=== PATIENT | female | born 1970 | race Caucasian/White ===

== ENCOUNTER 2016-12-08 07:17 | Day surgery (SDC) | payer OTHER, MEDICARE ==
[~2016-12-08] VITALS: Ht 160 cm; Wt 86.0 kg
[~2016-12-08 07:17] MED LIST: ARIP20TA8 PO; DIAZ5TAB PO; DXM4T PO; GABA-504 PO; HYDR-3090 PO; OXYC1TAB24 PO; PROZ20 PO; TRAZ-115 PO; [UNRECOGNIZED DRUG - CODE] PO
[2016-12-08] MEDS ORDERED: Bupivacaine-MPF 0.25% 30 mL Inj ONE (07:18)
[2016-12-08] MEDS ORDERED: MethylprednisoLONE Depot 80 mg/mL Inj ONE (07:18)
[2016-12-08 07:55] VITALS: BP 141/73; PULSE 86; RESP 16; O2SAT 98
--- NOTE | 2016-12-08 16:27 | PCM.PROC ---
Procedure Note Date of Service: Dec 08, 2016 Pre Procedure Diagnosis: PROCEDURE: LEFT Ultrasound guided sacroiliac joint injection. PRE-PROCEDURE DIAGNOSIS: Sacroiliitis POST-PROCEDURE DIAGNOSIS: same INDICATION: Posterior hip pain, consistent with sacroiliitis. PERFORMED BY: Robert Brambila MD DESCRIPTION OF PROCEDURE: Patient was met in the holding area. Consent was signed, site was confirmed and all questions were answered. Patient was taken to the procedure suite and placed prone on the procedure table. Area was prepped in sterile fashion. Local anesthesia with 1% lidocaine was injected into the skin and subcutaneous tissues. A 3-1/2 inch 22-gauge Quincke spinal needle was advanced under direct ultrasound visualization into the sacroiliac joint. After negative aspiration for blood, 2 cc of 0.25% bupivacaine with 40 mg Depo-Medrol was injected without incident. ANESTHESIA: Local. EBL: None. No Blood Products Used COMPLICATIONS: None SPECIMENS: None POST-PROCEDURE DISPOSITION: Patient was returned to the holding area in stable condition. They were discharged home when all discharge criteria were met. Evaluation/Physical Exam before discharge revealed: DISCHARGE MEDICATIONS: FOLLOW UP: Return to clinic in 4-6 weeks Robert De La Torre MD, MD Dec 08, 2016 16:27
[2017-03-14] MEDS ORDERED: FLUT9.9S NS (16:48)
== END 2016-12-08 23:59 | disposition home or self-care (01) ==
LOC: END 07:17
PROVIDERS: ATTEND Anesthesiology Pain Medicine
DX: M46.1 Sacroiliitis, not elsewhere classified (principal); M46.96 Unspecified inflammatory spondylopathy, lumbar region; M25.552 Pain in left hip; M25.551 Pain in right hip; F25.9 Schizoaffective disorder, unspecified; E66.9 Obesity, unspecified; Z68.34 Body mass index [BMI] 34.0-34.9, adult
CPT/HCPCS: G0260; J1040

== ENCOUNTER 2017-03-16 00:31 | Day surgery (SDC) | payer OTHER, MEDICARE ==
[~2017-03-16] VITALS: Ht 157.5 cm; Wt 88.0 kg
[~2017-03-16 00:31] MED LIST changes: -DIAZ5TAB PO; -DXM4T PO; +FLUT9.9S NS; -HYDR-3090 PO; -OXYC1TAB24 PO
[2017-03-16] MEDS ORDERED: Iohexol 240 mg/mL 10 mL Inj ONE (00:32)
[2017-03-16] MEDS ORDERED: Bupivacaine-MPF 0.25% 30 mL Inj ONE (00:32)
[2017-03-16 07:44] VITALS: BP 111/66; PULSE 82; RESP 16; O2SAT 94
[2017-03-16 08:03] VITALS: BP 119/63; PULSE 84; RESP 14; O2SAT 93
[2017-03-16 08:05] VITALS: BP 112/64; PULSE 78; RESP 16; O2SAT 94
[2017-03-16 08:10] VITALS: BP 121/65; PULSE 78; RESP 14; O2SAT 100
[2017-03-16 08:18] VITALS: BP 116/65; PULSE 79; RESP 20; O2SAT 94
--- NOTE | 2017-03-16 14:53 | PCM.PROC ---
Procedure Note Date of Service: March 16, 2017 Pre Procedure Diagnosis: PROCEDURE: Diagnostic medial branch block of the Lumbar facet joints LEFT L4-L5 , L5-S1. First injection. The 0.25% bupivacaine PRE-PROCEDURE DIAGNOSIS: Lumbar spondylosis POST-PROCEDURE DIAGNOSIS: same INDICATION: 46-year-old patient with greater than 3 months of moderate to severe axial LBP, refractory to conservative management, including NSAIDS and PT. PERFORMED BY: Robert Brambila MD DESCRIPTION OF PROCEDURE: Patient was met in the holding area. Consent was signed, site was confirmed and all questions were answered. Patient was taken to the procedure suite and placed prone on the procedure table. At each level, the vertebral endplates were used to optimize fluoroscopic position. Local anesthesia was attained with 1% lidocaine. The image intensifier was then rotated ipsilaterally to optimize the "Kelvin dog" position. A 25-gauge Quincke spinal needle was advanced towards the junction of the SAP and transverse process at each level. Proper positioning was confirmed in both the AP and lateral views. 0.5 cc of radiopaque contrast was injected to confirm proper position followed by an injection underlying fluoroscopy to minimize the chance of inadvertent vascular uptake. For the L5-[id number] joint the final position was the junction of the sacral ala and the S1 superior articulating process After proper positioning was confirmed, 0.5 cc of local anesthetic was injected at each level. ANESTHESIA: Local. EBL: None. No Blood Products Used COMPLICATIONS: None SPECIMENS: None POST-PROCEDURE DISPOSITION: Patient tolerated the procedure well and was returned to the holding area in stable condition. They were discharged home when all discharge criteria were met. DISCHARGE MEDICATIONS: None FOLLOW UP: Pain diary, Return to discuss Robert Brambila MD * Pain Management * Anesthesiology .ED: Y: Patient given care and follow up instructions Robert Brambila MD March 16, 2017 14:53
== END 2017-03-16 23:59 | disposition home or self-care (01) ==
LOC: END 00:31
PROVIDERS: ATTEND Anesthesiology Pain Medicine
DX: M47.896 Other spondylosis, lumbar region (principal); M47.816 Spondylosis without myelopathy or radiculopathy, lumbar region

== ENCOUNTER 2017-04-09 10:21 | Inpatient (IN) | payer OTHER, MEDICARE ==
[~2017-04-09] VITALS: Ht 160 cm; Wt 86.2 kg
[2017-04-09 10:31] VITALS: BP 117/72; PULSE 97; RESP 15; O2SAT 95
[2017-04-09] MEDS ORDERED: NORE-49 PO (10:39)
--- NOTE | 2017-04-09 11:17 | ED.REPORT ---
HPI-Psychiatric Illness Date of Service Apr 09, 2017 ED Provider: Giselle Dang MD Patient is a 47 year old female with a hx of schizoaffective disorder and previous suicide attempt who presents to the ED complaining of worsening suicidal ideation with a plan onset a few months ago. She states she was planning to kill herself by taking trazodone today but made a detour to the hospital. Additionally, she has follow through after her suicide plan. She will not reveal where the pills are hidden but states that they are not with her. She has tried to kill herself via overdose previously. Associated symptoms include mood swings. She denies homicidal ideation, hallucinations, or any other symptoms. She reports that her medications have not been working for the past few months and her PCP is not willing to change them. She takes Abilify, gabapentin, trazodone, and Prozac. She took her medications this morning. Her mental health CLOAK ROOM ATTENDANT is Tracie Fuchs at [facility] in [place]. Nursing Notes Stated Complaint: SUICIDAL Chief Complaint: Psychiatric Complaint Nursing Notes Reviewed: Yes Allergies: Coded Allergies: nortriptyline (Verified Allergy, Intermediate, Rash, 11/21/15) Scheduled Aripiprazole (Abilify) 20 Mg Tablet 20 MG PO HS Fluoxetine (Prozac) 20 Mg Capsule 60 MG PO DAILY Fluticasone Propionate (Flonase Allergy Relief) 50 Mcg/Actuation [place].susp 9.9 ML NS DAILY Gabapentin (Gabapentin) 400 Mg Capsule 400 MG PO TID Gabapentin (Gabapentin) 400 Mg Capsule 1,600 MG PO HS Norethindrone-Ethinyl Estrad (Cyclafem) 1 Each Tablet 1 EACH PO DAILY Trazodone (Trazodone) 50 Mg Tablet 250 MG PO HS General Time Seen by MD: 11:16 Chief Complaint Suicidal ideation Hx Obtained From: Patient Arrived By: Walk-in Similar Sx Previous: Yes Risk-Psychiatric Illness Suicide Risk Stratification Suicide Risk Factors - Adult: : Previous attemptNo: Alcohol use, Substance abuse RF Statements: Risk factors reviewed Past Medical History Past Medical History Hip pain Depression C-spine pain s/p work injury Schizoaffective disorder Past Surgical History Tubal ligation Neck surgery C-spine fusion 2010 s/p work injury Smoking History Former Smoker Social History Alcohol Use: Denies alcohol use (Rare ) Drug Use: Denies drug use Other Social History: , Local resident Ambulatory Status Independent Review of Systems Psychiatric: Reports: Suicidal ideation, Denies: Hallucinations, auditory, Hallucinations, visual, Homicidal ideation Complete sys rev & neg: except as marked. Physical Exam Initial Vital Signs Vital Signs (First) Date Time Temp Pulse Resp B/P Pulse Ox O2 Delivery O2 Flow Rate FiO2 04/09/17 10:31 36.8 97 15 117/72 95 Room Air Initial VS: Reviewed, Vital signs normal Head / Eyes: Atraumatic, Normocephalic Neck: Full range of motion Abdomen / GI: Soft, Non-tender Skin: Warm, Dry General/Constitutional: Awake, Alert, Well developed Neurologic: Oriented X3, Speech NL Psychiatric: Thought content NL Abnormal Mood/Affect: Positive: Flat affect Abnormal Thinking / Perception: Positive: Suicidal, with plan Has follow through after plan Intermittent eye contact Tearful but appropriate and focused Respiratory / Chest: Breath sounds NL, Breath sounds = bilat, No respiratory distress Cardiovascular: Heart sounds NL Heart Rate / Rhythm: Positive: Tachycardia Interpretation & Diagnostics Lab Results Interpretation Result Diagram: 04/09/17 1235 04/09/17 1235 Test 04/09/17 12:35 04/09/17 12:45 04/09/17 13:11 White Blood Count 10.1th/mm3 (3.8-10.1) Red Blood Count 4.94mil/mm3 (3.90-5.20) Hemoglobin 15.6g/dL (12.0-15.6) Hematocrit 47.5% (35.0-46.0) Mean Corpuscular Volume 96.2fL (81-100) Mean Corpuscular Hemoglobin 31.6pg (27.0-35.0) Mean Corpuscular Hemoglobin Concent 32.8% (32.0-37.0) Red Cell Distribution Width 12.4% (12.3-15.4) Platelet Count 351bil/L (150-400) Neutrophils (%) (Auto) 73.8% (40-74) Lymphocytes (%) (Auto) 20.4% (14-46) Monocytes (%) (Auto) 5.3% (4-12) Eosinophils (%) (Auto) 0.2% (0-5) Basophils (%) (Auto) 0.2% (0-3) Sodium Level 138mEq/L (134-144) Potassium Level 4.4mEq/L (3.5-5.2) Chloride Level 102mEq/L (97-108) Carbon Dioxide Level 20mmol/L (18-29) Blood Urea Nitrogen 9mg/dL (6-24) Creatinine 0.68mg/dL (0.57-1.00) Estimat Glomerular Filtration Rate 132mL/min (>59) Glucose Level 100mg/dL (60-99) Calcium Level 9.6mg/dL (8.5-10.1) Total Bilirubin 0.4mg/dL (0.0-1.2) Aspartate Amino Transf (AST/SGOT) 22U/L (0-50) Alanine Aminotransferase (ALT/SGPT) 20U/L (0-32) Alkaline Phosphatase 53U/L (25-150) Total Protein 7.6g/dL (6.4-8.4) Albumin 4.5g/dL (3.4-5.0) Thyroid Stimulating Hormone (TSH) 3.240uIU/mL (0.450-4.500) Hold Urine Received (Received) Hold Velazquez Top Tube Received (Received) Lab Results Interpretation: Urine tox negative Re-Eval/Medical Decision Re-Evaluation/Progress : Time of Eval: 11:30 )( Re-Eval Psychiatric: Clear for psych facility Re-Evaluation/Progress Note: Discussed plan for admission. Patient understands and agrees with plan. All questions addressed at this time. Consultation : Consulted With: relief worker Call Returned at: 12:16 Emergency Department Director: Will see patient, Agrees with plan Note: Discussed pt case with Lynne in social work. Will see patient. Counseled Regarding: Diagnosis, Need for admission Discharge & Departure Shift Change Sign-Out Patient Care Transferred: Yes Discussed Complaint(s): Yes Laboratory Evaluation: Back, reviewed by me Additonal Information: Transfer of care to Dr. Guadarrama at 1500. History of schizoaffective disorder with depression. Describes rapid cycling recently significantly worsening depression that has not been treated with current medication doses. She has a firm plan in place to take a bottle of her trazodone, she has this trazodone hidden and would not disclose where it was. She did say it was not with her at the hospital. Today she was planning to take this prior to taking the pills she did divert to the hospital to ask for help. She has arrangements made for her daughter her pets her home her finances etc. assuming that she would be . Tenderness firm plan and the follow-up plans that have already been arranged her risk for suicide is significant and inpatient treatment is recommended this time. She is medically cleared they are currently awaiting bed availability and placement. She remains voluntary and very cooperative Impression: Primary Impression: Suicidal ideation Additional Impressions: Medical clearance for psychiatric admission Schizoaffective disorder Depression Discharge Condition All VS Reviewed: Yes Condition: Stable Referrals: Kelly Hernandez (PCP) Care Transferred to: Transfer of care to Dr. Guadarrama Care Transferred at: 15:00 Scribe Attestation Portions of this note were transcribed by Ammon Lopez. I, Dr. Dang personally performed the history, physical exam and medical decision-making; I reviewed and confirmed the accuracy of the information in the transcribed note. Signed by: Ammon Lopez 04/09/17, 1433 copies to: Kelly Hernandez Shawna L MD Apr 09, 2017 11:17 AMMON LOPEZ Apr 09, 2017 12:16
[2017-04-09 12:48] LABS: BASOPHILS % (AUTO) 0.2 % (0-3); EOSINOPHILS % (AUTO) 0.2 % (0-5); MONOCYTES % (AUTO) 5.3 % (4-12); Mean Corpuscular Hemoglobin 31.6 pg (27.0-35.0); Mean Corpuscular Volume 96.2 fL (81-100); NEUTROPHILS % (AUTO) 73.8 % (40-74); Platelet Count 351 bil/L (150-400)
[2017-04-09 20:14] VITALS: BP 115/70; PULSE 82; RESP 14; O2SAT 100
[2017-04-09] MEDS ORDERED: Magnesium Hydroxide 10 mL Oral Concentration PO PRN (21:30)
[2017-04-09] MEDS ORDERED: Benzocaine-Menthol Lozenge 2/Pkg PO PRN (21:30)
[2017-04-09] MEDS ORDERED: Alum-Mag Hydrox-Simeth 30 mL Suspension PO PRN (21:30)
[2017-04-09] MEDS ORDERED: TRAZODONE PO SCH ×2 (21:32)
[2017-04-09] MEDS ORDERED: ARIPiprazole 10 mg Tablet PO SCH (21:32)
--- NOTE | 2017-04-09 23:23 | NUR ---
New Admit Voluntary admit SIOBHAN @ 1935. Ambulatory with steady gait. She presents as pleasant, cooperative and seeking help. Her main complaint is depression for the past several weeks and the night prior to admission she had suicidal thoughts with a plan to overdose on pills. She reports having a 24 year history of dealing with mental illness. She states she is diagnosed with "schizoaffective disorder and rapid cycling". She has had two prior suicide attempts with hospitalization in 1996 and 2010 both times she overdosed on medication. Pt reports having positive relationship with both and 16 year old daughter and feels supported by them. Normally this is a good time of year for her and enjoys gardening and taking care of her pets. She states "I have been having uncontrollable crying. I can't handle my mood swings. I don't know how to cope anymore. I think part of the problem is that I need a medication review. As I am getting older and my hormones are changing my medications might need adjusting. I did wonderful when I saw Dr. Broussard but then he retired. I have been seeing an TOBACCO HANGER who took over but she has not been willing to change my medication". Upon admission she rates depression 10/10, Anxiety 9/10, and SI prior to admission was 10/10 but now that she is in the hospital "I feel safe" and rates SI 0/10. Upon admit she was experiencing neck pain that was radiating down her shoulder rated 4/10 and received Motrin 600mg po prn. For the past 2 years she has had low back pain and is seeing a pain specialist Dr Robert Doherty. Pt signed all admission paperwork and oriented to the unit. She took her scheduled HS medication and appeared asleep by 2300. Addendum: 04/10/17 at 0526 by ZOHRA GABRIEL RN Difficulty falling asleep. She received Ambien 5mg po prn @ 0036 and later Ativan 1mg po prn @ 0142. Pt finally noted to be asleep @ 0215 and remains asleep at this time. Total sleep 4+ hours.
[2017-04-10] MEDS ORDERED: LORazepam 1 mg Tablet PO ONE (00:55)
[2017-04-10] MEDS ORDERED: LORazepam 1 mg Tablet PO PRN (01:30)
[2017-04-10] MEDS: CYCLAFEM PO SCH (08:04)
[2017-04-10 08:40] VITALS: BP 106/71; PULSE 91; RESP 15
--- NOTE | 2017-04-10 09:58 | NUR ---
Vehicle concerns: Pt worried about vehicle being towed from ED parking lot. Telephone call to Security staff, assured pt that vehicle would not be towed. Pt reports that she left a bag of clothing in car, pt asking if security can get into car and get her bag. Informed pt that security staff is not allowed to access private vehicles, informed pt that if she has family visiting then family can get into her car.
--- NOTE | 2017-04-10 15:48 | NUR ---
Obs Dayshift Pt has good participation in programs, groups, etc. Pt is engaging w/ peers and staff, appropriate, polite. Pt appears depressed at times, but working hard on pushing herself. Pt has reasonable requests. Pt states that the meds are making her a little tired but she is trying to push herself to be up more and out in the milieu. Good ADL's, Good meals
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
[2017-04-10] MEDS: risperiDONE 2 mg Tablet PO SCH (20:39)
--- NOTE | 2017-04-11 02:56 | NUR ---
Observations 1900 - 0700 Pt was observed to be flat, minimally social, isolative and in bed resting most of the evening. Pt was pleasant, polite and cooperative when approached. Pt maintained behavior throughout the shift. Pt speech and eye contact was ok. Pt attended wrap up group and stated that she met her goal for the day. Pt positive for the day was the friendliness of the whole unit and art group. Pt rated her mood 8/10, with 10 being the best. Pt ate snack. Pt first appeared asleep at 2200. Pt was observed every 15 minutes through the night as ordered.
--- NOTE | 2017-04-11 05:19 | NUR ---
Nursing Noc Pt isolative to room or out to DR not really interacting. Reported depression x weeks, Multiple hx of suicidal ideation and depression. Pt noted to be asleep at 2200 and remained asleep throughout the night. Continuing to monitor mood, behavior and emotional state. CP
[2017-04-11] MEDS: DULoxetine 20 mg DR Capsule PO SCH (08:05)
[2017-04-11] MEDS: CYCLAFEM PO SCH (08:06)
--- NOTE | 2017-04-11 13:14 | NUR ---
Nursing Note [id number] Behavior, Mood, Medications S/O: Pt has good appetite. Out of room to activities & groups. Pt rates mood at a "10" on a scale of 1-10/10 the worst. She denies suicidal ideation. She reports she slept last night with only 1 brief awakening. Pt c/o a headache this morning at a "8" on a scale of 1-10/10 the worst. Ibuprofen 600 mg given at 0845. Pt reports it helped "50%." She has requested a Bible & a visit with the rim buster. She states she would like to discharge tomorrow. "I need to get home to take care of things. My family is having to do everything themselves." A: Pt feels better with adequate sleep. Pt may need more monitoring of medications management prior to discharge. P: Provide supportive environment. Monitor medications & effects.
[2017-04-11 13:27] VITALS: BP 103/67; PULSE 96; RESP 16
--- NOTE | 2017-04-11 14:02 | NUR ---
spiritual care: pt request conversational visit in pt's room. pt engaged easily, used normal speaking tone/expression/eye contact. She reflected on struggles including with self esteem, worthiness and will to live. Pt reflected on her lutheran farzana and ways she feels vulnerable. pt able to assess strengths/source of hopefulness including current care environment, requested prayer and larger bible (provided copy of larger nt/psalms.)
--- NOTE | 2017-04-11 14:27 | PCM.PNPSY ---
Subjective Date of Service Apr 11, 2017 Subjective I spent 30 minutes both reviewing treatment plan with our clinical team, interviewing the patient and providing supportive/educational psychotherapy. I spent more than 50% of the time counseling the patient. I reviewed the treatment plan with the patient and discussed options available including the potential risks, benefits and side effects. Katerine reports a marked improvement in thought organization and mood stability. Staff reports that she has been active and participating well in one-to-one unit and group activities. She slept 6 hours and denies depression manic or psychotic symptoms review. She denies medication side effects. She was able to identify her medications and what they were used to treat. Current Medications Current Medications Aripiprazole 20 mg HS PO Last administered on 04/09/17 21:57; Admin Dose 20 MG; Start 04/09/17 at 21:32; Stop 04/10/17 at 13:36; Status DC Clonazepam 1 mg HS PO Last administered on 04/10/17 20:39; Admin Dose 1 MG; Start 04/10/17 at 21:00 Duloxetine HCl 40 mg DAILY PO Last administered on 04/11/17 08:05; Admin Dose 40 MG; Start 04/11/17 at 08:30 Fluoxetine HCl 60 mg DAILY PO Last administered on 04/11/17 08:05; Admin Dose 60 MG; Start 04/10/17 at 08:30 Gabapentin 400 mg TID PO Last administered on 04/11/17 08:05; Admin Dose 400 MG ; Start 04/10/17 at 08:30 Gabapentin 1,600 mg HS PO Last administered on 04/10/17 20:38; Admin Dose 1,600 MG; Start 04/09/17 at 21:28 Ibuprofen 600 mg Q6H PRN PO Last administered on 04/11/17 08:51; Admin Dose 600 MG; Start 04/09/17 at 21:30 Lorazepam 1 mg OT PRN PO Last administered on 04/10/17 01:42; Admin Dose 1 MG; Start 04/10/17 at 01:30; Stop 04/10/17 at 02:00; Status DC Patient Own Medication 1 ea DAILY PO Last administered on 04/11/17 08:06; Admin Dose 1 EA; Start 04/10/17 at 08:30 Risperidone 2 mg DAILY PO Last administered on 04/10/17 20:39; Admin Dose 2 MG; Start 04/10/17 at 20:30 Trazodone HCl/ Trazodone HCl 250 mg HS PO Last administered on 04/09/17 21:57; Admin Dose 250 MG; Start 04/09/17 at 21:32; Stop 04/10/17 at 13:36; Status DC Zolpidem Tartrate START WITH 5 MG AND MAY REP... HS PRN PO Last administered on 04/10/17 00:36; Admin Dose 5 MG; Start 04/09/17 at 21:30 Mental Status Exam Vital Signs Vital Signs Date Time Temp Pulse Resp B/P Pulse Ox O2 Delivery O2 Flow Rate FiO2 04/11/17 13:27 37.2 96 16 103/67 Appearance: Neat/well groomed Attitude: Pleasant, Cooperative Behavior: No unusual behavior Affect: Well Modulated/Appropriate Mood: Euthymic Thought Process/Associations: Logical/Sequential, Goal Directed Speech Production: Normal Speech Rate: Normal Speech Articulation: Normal Thought Content: Appropriate Danger to Self/Suicidal Ideati: None Danger to Others: None Consciousness: Alert Orientation: Person, Place, Date, Situation Memory: Grossly Intact Estimate Intellectual Function: Above Average Basis for IQ estimate: Awareness current events, Word use/vocabulary, Educational history Attention/Concentration & Cogn: Impaired Cognitive Testing Method: Abstract Reasoning during interview, Proverb interpretation, Serial computations Insight: Good Judgement: Limited Result Diagram: 04/09/17 1235 04/09/17 1235 Mental Health Plan Katerine is a 47-year-old, white female who has been struggling with mental illness for the past 25 years. Despite being on increasing doses of Abilify, Prozac, Neurontin and trazodone, she has continued to struggle with suicidal depression symptoms and suicidal ideation. We talked at length Sunday about the relative risks, benefits and side effects of changing medications. She appeared to understand the relative risk versus the relative benefits, and she agreed to transition from Abilify, Prozac and trazodone to a combination of Cymbalta, Risperdal and Klonopin to target sleep, mood and maintain a resolution of psychotic symptoms. With the structure of our unit in the above medication changes she was able to sleep well. She is working on identifying stressors that led to suicidal ideation. She states that although she has a bit of a headache she feels better than she has in a long while After recent medication changes. I believe the change in sleep is the main cause for her flight into health. [place] ISchizoaffective disorder, currently depressed, with suicidal ideation. [place] IIDeferred. [place] IIINone. [place] IVMild. [place] VCurrent global assessment of functioning equal to 35. Medications Treatments Patient is being provided with a high degree of safety through our unit structure and active adult engagement provided by our mental health professionals, mental health technicians, psychiatric nurses and myself. We are focusing on developing improved coping skills and identifying stressors that may have led to current episode. We will attempt to: * Integrate into therapeutic groups, milieu and individual therapy. * Maintain in a closely monitored and structured unit * Provide low-stimulation environment * Obtain collateral data to assist in treatment planning * Assess degree of lability of affect and impulse control * Complete safety plan * Decrease frequency of relapse and need for re-hospitalization * Denies thoughts of harm to self and/or others * Establish a consistent sleep pattern * Medication effective in stabilization of mood and/or thought process * Reduce the risk of imminent harm to self and/or others by providing a safe environment * Tolerates medication without side effects Patient will be on the following psychiatric medications: Klonopin 1 mg at bedtime Cymbalta 40 mg every morning Risperdal 2 mg at bedtime Depakote 1600 at bedtime Patient's legal status Patient is voluntary she is not on a involuntary treatment hold. Anticipated number of hospital days to achieve above goals: 5 Disposition: Home Rohan Townsedn MD Apr 11, 2017 14:27
--- NOTE | 2017-04-11 18:08 | NUR ---
[facility] Day Shift Pt maintained behavioral control throughout the shift. Pt affect appears mostly flat, brighter when engaged with staff and peers. Pt spends most of the shift resting in her room, but is participatory in unit activities when prompted by staff. Pt is pleasant with staff and peers when active on the unit. Pt attended all group activities and participated actively. Pt attended all meals and ate approx 100% of meals.
--- NOTE | 2017-04-11 19:30 | NUR ---
retail office manager/Counselor: S: "I have a headache today." O: Patient slept 8 hours last night per staff. Patient denies S/I and H/I. She also denies auditory and visual hallucinations. . A: Patient is cooperative, euthymic, limited judgment. P: Follow care plan, coordinate with out-patient providers.
[2017-04-11] MEDS: risperiDONE 2 mg Tablet PO SCH (20:40)
[2017-04-12] MEDS: LORazepam 1 mg Tablet PO PRN ×2 (02:13→18:12)
--- NOTE | 2017-04-12 04:19 | NUR ---
nursing, nights, 11-7 s- the ambien makes me restless. i took ativan before. thank you. o- has appeared to sleep after 2200. up 0110 and tried to get back to sleep. received 1 mg of ativan at 0215. appears asleep after 0245. assessed q 15 minutes. a- interrupted sleep, medication helpful, no apparent distress. p- monitor behavior/emotional state, quality, times and amount of sleep, use and effect of medication. vickie
[2017-04-12] MEDS: CYCLAFEM PO SCH (08:11)
[2017-04-12] MEDS: DULoxetine 20 mg DR Capsule PO SCH (08:11)
[2017-04-12] MEDS: risperiDONE 2 mg Tablet PO SCH (10:37)
--- NOTE | 2017-04-12 11:04 | NUR ---
Nursing Note [id number] Mood, Behavior S/O: Pt has good appetite. She rates mood at a "7" on a scale of 1-10/10 the best. "I don't have that deep depression." She states she has a "little anxiety" r/t discharge. She has multiple questions about discharge tomorrow. Questions answered as possible. She states she is concerned she is having problems sleeping. Pt says she will be going home tomorrow unless the doctor feels she needs more time here. A: Pt is responding well to medications. P: Provide supportive environment. Monitor medications & effects.
[2017-04-12 12:53] VITALS: BP 112/74; PULSE 93; RESP 16
--- NOTE | 2017-04-12 13:06 | PCM.PNPSY ---
Subjective Date of Service Apr 12, 2017 Subjective I spent 30 minutes both reviewing treatment plan with our clinical team, interviewing the patient and providing supportive/educational psychotherapy. I spent more than 50% of the time counseling the patient. I reviewed the treatment plan with the patient and discussed options available including the potential risks, benefits and side effects. Katerine reports a marked improvement in thought organization and mood stability. Staff reports that she has been active and participating well in one-to-one unit and group activities. She struggled to sleep last night and in addition to Risperdal and Klonopin also required Ativan. She then Slept 8 hours and denies depression manic or psychotic symptoms review. She denies medication side effects. She was able to identify her medications and what they were used to treat. Current Medications Current Medications Clonazepam 1 mg HS PO Last administered on 04/11/17 20:40; Admin Dose 1 MG; Start 04/10/17 at 21:00 Duloxetine HCl 40 mg DAILY PO Last administered on 04/12/17 08:11; Admin Dose 40 MG; Start 04/11/17 at 08:30 Lorazepam 1 mg, give another 1 mg if ... Q4H PRN PO Last administered on 02:13; Admin Dose 1 MG; Start 04/12/17 at 02:05 Risperidone 2 mg DAILY PO Last administered on 04/12/17 10:37; Admin Dose 2 MG; Start 04/10/17 at 20:30 Mental Status Exam Vital Signs Vital Signs Date Time Temp Pulse Resp B/P Pulse Ox O2 Delivery O2 Flow Rate FiO2 04/12/17 12:53 36.6 93 16 112/74 Appearance: Neat/well groomed Attitude: Pleasant, Cooperative Behavior: No unusual behavior Affect: Well Modulated/Appropriate Mood: Euthymic Thought Process/Associations: Logical/Sequential, Goal Directed Speech Production: Normal Speech Rate: Normal Speech Articulation: Normal Thought Content: Appropriate Danger to Self/Suicidal Ideati: None Danger to Others: None Consciousness: Alert Orientation: Person, Place, Date, Situation Memory: Grossly Intact Estimate Intellectual Function: Above Average Basis for IQ estimate: Awareness current events, Word use/vocabulary, Educational history Attention/Concentration & Cogn: Impaired Cognitive Testing Method: Abstract Reasoning during interview, Proverb interpretation, Serial computations Insight: Good Judgement: Good Result Diagram: 04/09/17 1235 04/09/17 1235 Mental Health Plan Katerine is a 47-year-old, white female who has been struggling with mental illness for the past 25 years. Despite being on increasing doses of Abilify, Prozac, Neurontin and trazodone, she has continued to struggle with suicidal depression symptoms and suicidal ideation. We talked at length Sunday about the relative risks, benefits and side effects of changing medications. She appeared to understand the relative risk versus the relative benefits, and she agreed to transition from Abilify, Prozac and trazodone to a combination of Cymbalta, Risperdal and Klonopin to target sleep, mood and maintain a resolution of psychotic symptoms. With the structure of our unit in the above medication changes she was able to sleep well. She is working on identifying stressors that led to suicidal ideation. She states that although she has a bit of a headache she feels better than she has in a long while After recent medication changes. I believe the change in sleep is the main cause for her flight into health. She struggled to sleep last night \And required an additional dose of Ativan. I will increase her Klonopin to 2 mg at bedtime for tonight. [place] ISchizoaffective disorder, currently depressed, with suicidal ideation. [place] IIDeferred. [place] IIINone. [place] IVMild. [place] VCurrent global assessment of functioning equal to 40 Medications Treatments Patient is being provided with a high degree of safety through our unit structure and active adult engagement provided by our mental health professionals, mental health technicians, psychiatric nurses and myself. We are focusing on developing improved coping skills and identifying stressors that may have led to current episode. We will attempt to: * Integrate into therapeutic groups, milieu and individual therapy. * Maintain in a closely monitored and structured unit * Provide low-stimulation environment * Obtain collateral data to assist in treatment planning * Assess degree of lability of affect and impulse control * Complete safety plan * Decrease frequency of relapse and need for re-hospitalization * Denies thoughts of harm to self and/or others * Establish a consistent sleep pattern * Medication effective in stabilization of mood and/or thought process * Reduce the risk of imminent harm to self and/or others by providing a safe environment * Tolerates medication without side effects Patient will be on the following psychiatric medications: Increase Klonopin to 2 mg at bedtime Cymbalta 40 mg every morning Risperdal 2 mg at bedtime Depakote 1600 at bedtime Patient's legal status Patient is voluntary she is not on a involuntary treatment hold. Anticipated number of hospital days to achieve above goals: 1 Disposition: Home Rohan Townsend MD Apr 12, 2017 13:06
--- NOTE | 2017-04-12 18:19 | NUR ---
human capital manager/Counselor: S: "I get restless with some of the medicine I take." O: Patient slept 7 hours last night per staff. Patient denies S/I and H/I. She also denies auditory and visual hallucinations. She did not rate depression and anxiety. A: Patient is cooperative, improving, fair insight, fair judgment. P: Follow care plan, coordinate with out-patient providers. Addendum: 04/12/17 at 1826 by BALJINDER BLOOM [facility] Patient attended group session today.
--- NOTE | 2017-04-12 18:20 | NUR ---
[facility] Day Shift Pt affect and behavior unchanged from previous shift. Pt maintained behavioral control throughout the shift. Pt affect appears mostly flat, brighter when engaged with staff and peers. Pt spends most of the shift resting in her room, but is participatory in unit activities when prompted by staff. Pt is pleasant with staff and peers when active on the unit. Pt attended all group activities and participated actively. Pt attended all meals and ate approx 100% of meals.
--- NOTE | 2017-04-12 21:39 | NUR ---
Neurontin TID and HS neurontin doses are scheduled 30 min. apart. The third daily dose shows in [facility] as having been pulled out for pt at 1937 by offgoing RN Lulu, but it was not charted as having been given. Pt. states she did not receive this med; however, I cannot find it. Based on pt report of home med schedule, neurontin times were recommended to change to 0700, 1200 and 1600. Pharmacist states he will change time accordingly. HS dose of neurontin was given by me. Third daily dose was held due to the confusion.
--- NOTE | 2017-04-12 22:38 | NUR ---
NURS Note [id number] Mood: "I'm anxious to go home tomorrow and see my people." Endorsed anxiety 07/15, given PRN Ativan which "helped." Denies depression. Affect: Well-modulated. Thought Process/Content: "I'm feeling a little paranoid about the other people on the unit. I just want to stay in my room." Linear and logical. Denies SI, HI. Denies AH, VH. Behavior: Pleasant and appropriate. Pt in room much of shift. PRNs/NURS: Took Ativan 1 mg PRN for anxiety at 181
[2017-04-13] MEDS: LORazepam 1 mg Tablet PO PRN ×2 (04:01→04:35)
--- NOTE | 2017-04-13 04:13 | NUR ---
nursing, nights, 11-7 s- i was sleeping good till they woke me up. o- has appeared to sleep after 5. up at 0400, received 1 mg of ativan and returned to bed. assessed q 15 minutes. a- interrupted sleep, no apparent distress. p- monitor behavior/emotional state, quality, times and amount of sleep, use and effect of medication. vickie
[2017-04-13] MEDS: risperiDONE 2 mg Tablet PO SCH (08:26)
[2017-04-13] MEDS: DULoxetine 20 mg DR Capsule PO SCH (08:26)
[2017-04-13] MEDS: CYCLAFEM PO SCH (08:29)
[2017-04-13] MEDS ORDERED: DULO20CA PO (11:21)
[2017-04-13] MEDS ORDERED: KLO1T PO (11:21)
[2017-04-13] MEDS ORDERED: RISP2TAB21 PO (11:21)
[2017-04-13] MEDS ORDERED: GABA400C PO ×2 (11:21)
--- NOTE | 2017-04-13 11:24 | PCM.DIMED ---
Discharge Instructions Date of Service Apr 13, 2017 Dates of Hospitalization Apr 09, 2017 at 19:05 Discharge Diagnosis Discharge Diagnosis Branch ISchizoaffective disorder Branch IIDeferred. Branch IIINone. Branch IVMild. Branch VCurrent global assessment of functioning equal to 40 Medication Instructions Additional med instructions I Strongly encouraged patient to follow up with outpatient care: 1-Recommended patient takes medication as prescribed and not alter this unless under the direct care of a provider: Risperdal 2 mg at bedtime Gabapentin 400 3 times a day 1600 at bedtime Cymbalta 40 mg daily Klonopin 1 mg at bedtime 2-Recommend client refrain from recreational drugs and alcohol while taking psychiatric medications. 3-Recommend patient attempt to find a therapist or group to deal with unresolved relationship issues relating to childhood anabaptist of origin Diet Discharge Diet: No restrictions Activity Discharge Activity: No restrictions Call your provider Call your provider for: Fever or Chills Patient Instructions Patient Instructions Follow-up with [facility] [place]. Client to have an appointment the next several weeks Follow-up with PCP in: 2 weeks Rohan Townsend MD Apr 13, 2017 11:24
--- NOTE | 2017-04-13 11:52 | DIS ---
[address] [address] DISCHARGE SUMMARY PATIENT: ANA FUENTES : 1970 MR#: [id number] ADMIT: 04/09/2017 JOB ID: [id number] DIS: 04/13/2017 IDENTIFICATION: Client is a 47-year-old white female, lives with her of over 20 years and her daughter. She is on SSI for schizoaffective disorder for the past 25 years and lives on [place]. REASON FOR ADMISSION: Command auditory hallucinations to go to the our ED to get help after contemplating overdosing on her trazodone. SUMMARY OF PRESENT ILLNESS: A 47-year-old white female who has been struggling with mental illness for 25 years. Despite being on increasing doses of Abilify, Prozac, Neurontin and trazodone, she has continued to struggle with suicidal ideation and depressive symptoms. She has a very supportive and daughter and her only stress is related to chronic issues with money, her working more and making less. HOSPITAL COURSE: The client is admitted to our unit and was provided with a high degree of safety through the structure and active adult engagement she received here. We had her participate in one-to-one unit and group activities focused on improving coping skills and reality based thinking and coming up with a safety plan should suicidal ideation recur as an outpatient. She participated actively and well in all the above activities. In terms of medications, her Abilify, Prozac and trazodone were changed to a combination of Cymbalta, Risperdal and Klonopin. She was remained on her gabapentin at her regular dose throughout her stay here. With the medication changes and the therapy, she showed a steady and rapid improvement in mood stability and thought organization and is today requesting discharge. MENTAL STATUS EXAMINATION: Client neatly dressed, calm, pleasant, good eye contact. Speech normal rate and rhythm. Mood euthymic. Affect congruent. Normal intensity. Thought process: Client is able to relate a coherent history. No signs of psychosis. Thought content: Themes of future planning, how to take care of herself. Denied auditory hallucinations. Alert and oriented to person, place and date. Insight and judgment appropriate. Impulse control highly contained. Reality testing intact. Competence to handle current stressors appears to be at baseline. DISCHARGE DIAGNOSIS: AXIS I Schizoaffective disorder. AXIS II Defer. AXIS III None. AXIS IV Mild. AXIS V 45. DISCHARGE PLAN: An appointment for client to followup with her primary care ACCOUNT SUPPORT MANAGERTracie, [facility] in [place] within the next two weeks. DISCHARGE MEDICATIONS: 1. Gabapentin 400 t.i.d. and 1600 h.s. 2. Risperdal 2 h.s. 3. Cymbalta 40 daily. 4. Klonopin 1 h.s. ACTIVITIES AND DIET: No restrictions. Recommend she not take recreational drugs while taking psychiatric medications. Recommend she not change her medications unless under the supervision of a physician. CONDITION ON DISCHARGE: Good. PROGNOSIS: Good.
--- NOTE | 2017-04-13 12:27 | NUR ---
Nursing: Day shift and discharge Katerine presented this morning well groomed, alert, oriented, aware that se will be discharged. She states she feels much better than on arrival. DEnies anxiety, self-harm ideas and depression. Medicaid Analyst went through discharge forms with her and she understands instructions including the instruction to stop prozac. The prozac order was clarified with Dr. Townsend by commercial underwriter. Gathered all belongings and left unit at 1211, ambulatory, and lone to go home by her own vehicle that she had here. All outcomes met.
[2017-04-13 13:07] VITALS: BP 108/69; PULSE 107; RESP 16
--- NOTE | 2017-04-13 16:30 | NUR ---
manager equity/Counselor: S: "Will my out-patient doctor continue my medicine that I started in here?" O: Patient slept 6 hours last night per staff. Patient denies S/I and H/I. She also denies auditory and visual hallucinations. She did not rate depression and anxiety. Out-patient appointments: Maria Fernanda Romero, counselor, 04/18/17 at 2:30pm and STEFAN ResendizP, FINANCIAL REPORTING SPECIALIST, 05/10/17 at 11:00am. A: Patient is cooperative, improving, fair insight, fair judgment. P: Follow care plan, coordinate with out-patient providers.
== END 2017-04-13 12:11 | disposition home or self-care (01) | DRG 885 ==
LOC: SED 10:21 → MHC 19:05
PROVIDERS: ADMIT Psychiatry & Neurology Psychiatry; ATTEND Psychiatry & Neurology Psychiatry
DX: F25.1 Schizoaffective disorder, depressive type (principal); R45.851 Suicidal ideations

== ENCOUNTER 2017-05-21 11:28 | Emergency (ER) | payer OTHER, MEDICARE ==
[~2017-05-21 11:28] MED LIST changes: -ARIP20TA8 PO; +DULO20CA PO; -FLUT9.9S NS; -GABA-504 PO; +GABA400C PO; +KLO1T PO; +NORE-49 PO; -PROZ20 PO; +RISP2TAB21 PO; -TRAZ-115 PO; -[UNRECOGNIZED DRUG - CODE] PO
[2017-05-21 11:39] VITALS: BP 125/80; PULSE 82; RESP 16; O2SAT 97
[2017-05-21] MEDS ORDERED: LORA1TAB PO (11:49)
--- NOTE | 2017-05-21 11:52 | ED.REPORT ---
HPI-Psychiatric Illness Date of Service May 21, 2017 ED Provider: Don Skelton MD Pt is a 47 y/o female w/ a hx of schizoaffective disorder, depression, suicide attempt, presenting to the ED due to SI. The patient was last admitted here at [facility] April 09- for Command auditory hallucinations to go to the ED to get help after contemplating overdosing on her trazodone. She states she is having trouble with her medications and her suicidal ideations are ongoing. The patient states she likely left the hospital too early last time so her medications weren't stabilized. Her discharge The patient's discharge medications are listed below, of note her PCP changed her from Klonopin to Lorazepam. Her plan for suicide would be to overdose on sedatives such as Lorazepam and Trazodone. The patient states she gave her bottle of Trazodone to her to keep her safe. She denies HI, any medical complaints. DISCHARGE MEDICATIONS: 1. Gabapentin 400 t.i.d. and 1600 h.s. 2. Risperdal 2 h.s. 3. Cymbalta 40 daily. 4. Klonopin 1 h.s. Nursing Notes Stated Complaint: SUICIDAL Chief Complaint: Psychiatric Complaint Nursing Notes Reviewed: Yes Allergies: Coded Allergies: nortriptyline (Verified Allergy, Intermediate, Rash, 05/21/17) flaxseed (Verified Allergy, Unknown, 05/21/17) Uncoded Allergies: Millet seed (Allergy, Unknown, 04/09/17) Scheduled Duloxetine (Cymbalta) 20 Mg Capsule 40 MG PO DAILY Gabapentin (Neurontin) 400 Mg Capsule 400 MG PO TID@07,12,16 Gabapentin (Neurontin) 400 Mg Capsule 1,600 MG PO HS Norethindrone-Ethinyl Estrad (Cyclafem) 1 Each Tablet 1 EACH PO DAILY Risperidone (Risperdal) 2 Mg Tablet 2 MG PO DAILY Scheduled PRN Lorazepam (Lorazepam) 1 Mg Tablet 2 MG PO HS PRN PRN For Insomnia General Time Seen by MD: 11:49 Chief Complaint Suicidal ideation Hx Obtained From: Patient Arrived By: Walk-in Onset Occurred: More than a week ago... Symptom Duration: Since onset Progression Since Onset: Constant Severity: Current: No pain currently Severity: Maximum: No pain Recent Healthcare: Recent doctor visit, Recent hospitalization Similar Sx Previous: Yes Risk-Psychiatric Illness Suicide Risk Stratification RF Statements: Risk factors reviewed Past Medical History Past Medical History Hip pain Depression C-spine pain s/p work injury Schizoaffective disorder Hx suicide attempt by overdose Past Surgical History Tubal ligation Neck surgery C-spine fusion 2010 s/p work injury Smoking History Former Smoker Social History Alcohol Use: Denies alcohol use Drug Use: Denies drug use Other Social History: , Local resident Ambulatory Status Independent Review of Systems Psychiatric: Reports: Depression, Stress, Suicidal ideation Complete sys rev & neg: except as marked. Physical Exam Initial Vital Signs Vital Signs (First) Date Time Temp Pulse Resp B/P Pulse Ox O2 Delivery O2 Flow Rate FiO2 05/21/17 11:39 36.8 82 16 125/80 97 Room Air Initial VS: Reviewed, Vital signs normal Head / Eyes: Atraumatic, Normocephalic, PERRL ENT: Mucous membranes moist, Conjunctiva normal, No scleral icterus Neck: Supple, Full range of motion Respiratory: Breath sounds normal, Clear to auscultation, No respiratory distress Cardiovascular: Regular rate & rhythm, Heart sounds normal, Intact distal pulses Abdomen / GI: Soft, Non-tender Extremities: Vascular intact, Neuro intact, No swelling Skin: Warm, Dry, No cyanosis General/Constitutional: Awake, Alert, No acute distress, Cooperative, Not toxic appearing Neurologic: Oriented X3, Speech NL, No motor deficits, Memory NL Psychiatric: No hallucinations, Judgment/insight NL Abnormal Mood/Affect: Positive: Flat affect Abnormal Thinking / Perception: Positive: Suicidal, with plan Interpretation & Diagnostics Lab Results Interpretation Result Diagram: 05/21/17 1235 05/21/17 1235 Test 05/21/17 12:35 05/21/17 13:10 White Blood Count 7.7th/mm3 (3.8-10.1) Red Blood Count 4.30mil/mm3 (3.90-5.20) Hemoglobin 13.7g/dL (12.0-15.6) Hematocrit 41.2% (35.0-46.0) Mean Corpuscular Volume 95.8fL (81-100) Mean Corpuscular Hemoglobin 31.9pg (27.0-35.0) Mean Corpuscular Hemoglobin Concent 33.3% (32.0-37.0) Red Cell Distribution Width 12.5% (12.3-15.4) Platelet Count 335bil/L (150-400) Neutrophils (%) (Auto) 63.1% (40-74) Lymphocytes (%) (Auto) 26.2% (14-46) Monocytes (%) (Auto) 8.5% (4-12) Eosinophils (%) (Auto) 1.8% (0-5) Basophils (%) (Auto) 0.3% (0-3) Sodium Level 139mEq/L (134-144) Potassium Level 4.2mEq/L (3.5-5.2) Chloride Level 103mEq/L (97-108) Carbon Dioxide Level 22mmol/L (18-29) Blood Urea Nitrogen 9mg/dL (6-24) Creatinine 0.66mg/dL (0.57-1.00) Estimat Glomerular Filtration Rate 137mL/min (>59) Glucose Level 90mg/dL (60-99) Calcium Level 9.1mg/dL (8.5-10.1) Total Bilirubin 0.3mg/dL (0.0-1.2) Aspartate Amino Transf (AST/SGOT) 19U/L (0-50) Alanine Aminotransferase (ALT/SGPT) 13U/L (0-32) Alkaline Phosphatase 50U/L (25-150) Total Protein 6.5g/dL (6.4-8.4) Albumin 3.9g/dL (3.4-5.0) Thyroid Stimulating Hormone (TSH) 2.600uIU/mL (0.450-4.500) Hold Velazquez Top Tube Received (Received) Hold Urine Received (Received) Re-Eval/Medical Decision Med Decision/Clinical Course 47-year-old female history of depression and overdose presenting with thoughts of killing herself by overdosing on her sleeping medications. This probe pending at time of shift change. Transferred care to Dr. Fung at shift change. At roughly 7:30 PM Stefan's accepted to [facility]. She will be transferred by [facility] ambulance. I spoke with her myself. She is definitely depressed and suicidal. I feel that inpatient treatment is her best option for wellness. She signed consent for transfer and she is transferred in stable condition Consultation : Consulted With: floor worker transfer bay Call Returned at: 13:24 Urban Sociologist: Will see patient, Agrees with eval, Agrees with plan Note: Will help arranging placement. Recommends the patient cannot leave on her own volition. Becomes involuntary if she tries to leave. Counseled Regarding: Diagnosis, Lab results Discharge & Departure Impression: Primary Impression: Suicidal ideation Discharge Condition All VS Reviewed: Yes Condition: Stable Referrals: Kelly Hernandez (PCP) Care Transferred to: Dr. Fung Care Transferred at: 18:05 Scribe Attestation Portions of this note were transcribed by Óscar Rivas. I, Dr. Skelton personally performed the history, physical exam and medical decision-making; I reviewed and confirmed the accuracy of the information in the transcribed note. Signed by Velvet Richardson, 05/21/17 - 1200 copies to: Kelly Hernandez Ben M MD May 21, 2017 11:52 ÓSCAR RIVAS May 21, 2017 12:00 Guzman Fung DO May 21, 2017 19:43
[2017-05-21 13:01] LABS: BASOPHILS % (AUTO) 0.3 % (0-3); EOSINOPHILS % (AUTO) 1.8 % (0-5); MONOCYTES % (AUTO) 8.5 % (4-12); Mean Corpuscular Hemoglobin 31.9 pg (27.0-35.0); Mean Corpuscular Volume 95.8 fL (81-100); NEUTROPHILS % (AUTO) 63.1 % (40-74); Platelet Count 335 bil/L (150-400)
[2017-05-21 18:28] VITALS: BP 121/48; PULSE 87; RESP 16; O2SAT 96
[2017-05-21 19:37] VITALS: BP 128/46; PULSE 95; RESP 16; O2SAT 97
== END 2017-05-21 19:45 | disposition other institution (70) ==
LOC: SED 11:28
DX: R45.851 Suicidal ideations (principal); F25.9 Schizoaffective disorder, unspecified; F32.9 Major depressive disorder, single episode, unspecified; Z87.891 Personal history of nicotine dependence; Z88.8 Allergy status to other drugs, medicaments and biological substances